=== PATIENT | female | born 1970 | race Caucasian/White ===

== ENCOUNTER 2019-07-15 13:50 | Outpatient (CLI) | payer MEDICARE, MEDICAID, SELFPAY ==
--- NOTE | 2019-07-15 14:05 | CT_ITS ---
WS: [id number] CT CHEST TECHNIQUE: Contrast enhanced CT of the chest with coronal and sagittal reformatted images. CLINICAL INFORMATION: COUGH,ASTHMATIC BRONCHITIS, TOBACCO ABUSE COMPARISON: None. DLP: 1095.[address] scans at [facility] use at least one of these dose optimization techniques: automat ed exposure control; mA and/or kV adjustment per patient size (includes targeted exams where dose is matched to clinical indication); or iterative reconstruction. FINDINGS: Mild chronic emphysematous changes. No acute pulmonary infiltrates. No suspicious pulmonary parenchym al opacities. Slight right basilar atelectasis. No mediastinal or hilar lymphadenopathy. Thyroid glan d is normal. Adrenal glands are normal. Diffuse fatty infiltration liver. Cholecystectomy clips. CT/CT chest w con* [id number] IMPRESSION: 1. Mild chronic emphysematous changes. 2. No acute pulmonary infiltrates. No suspicious pulmonary opacities. 3. No mediastinal or hilar lymphadenopathy. 4. Mild diffuse fatty infiltration of the liver. Cholecystectomy clips. 5. Small esophageal hiatal hernia.
[2019-07-15] MEDS: iohexol 300 mg/mL 100 mL Btl IV (14:54)
== END 2019-07-15 13:51 | disposition home or self-care (01) ==
PROVIDERS: Family Provider Nurse Practitioner Family; PCP Nurse Practitioner Family; Visit Provider Nurse Practitioner Family
DX: J43.9 Emphysema, unspecified (principal); J45.909 Unspecified asthma, uncomplicated; F17.210 Nicotine dependence, cigarettes, uncomplicated; K76.0 Fatty (change of) liver, not elsewhere classified; K44.9 Diaphragmatic hernia without obstruction or gangrene
CPT/HCPCS: 71260; Q9967

== ENCOUNTER 2020-02-17 11:19 | Outpatient (CLI) | payer MEDICARE, MEDICAID, SELFPAY ==
--- NOTE | 2020-02-17 11:29 | CT_ITS ---
WS: [id number] CT ABDOMEN PELVIS TECHNIQUE: Contrast-enhanced CT of the abdomen and pelvis with coronal and sagittal reformatted image s. CLINICAL INFORMATION: CONSTIPATION/ABD PAIN COMPARISON: CT 3 19,018 DLP: 1145.[address] scans at [facility] use at least one of these dose optimization techniques: automat ed exposure control; mA and/or kV adjustment per patient size (includes targeted exams where dose is matched to clinical indication); or iterative reconstruction. FINDINGS: Prior cholecystectomy. Prior hysterectomy. Mild diffuse fatty infiltration liver. Normal po rtal vein and splenic vein. Small esophageal hiatal hernia. Adrenal glands are normal. Normal renal p arenchymal enhancement. No hydronephrosis.Lung bases are well aerated. Normal sigmoid colon. No evidence of small or large bowel obstruction. No free fluid in the abdomen o r pelvis. Normal caliber abdominal aorta. No inguinal lymphadenopathy. Tiny fat-containing umbilical hernia. Mild disc osteophyte complex at L1-2. CT/CT abdomen pelvis w con* [id number] IMPRESSION: 1. Mild diffuse fatty infiltration of the liver. 2. Small esophageal hiatal hernia. 3. Cholecystectomy and hysterectomy. 4. Normal caliber abdominal aorta. 5. No evidence of small or large bowel obstruction. 6. No free fluid in the abdomen or pelvis.
[2020-02-17] MEDS: iohexol 300 mg/mL 50 mL Btl PO (12:48)
[2020-02-17] MEDS: iohexol 300 mg/mL 100 mL Btl IV (13:07)
== END 2020-02-17 11:20 | disposition home or self-care (01) ==
LOC: RADWPI 11:23
PROVIDERS: Family Provider Nurse Practitioner Family; PCP Nurse Practitioner Family; Visit Provider Nurse Practitioner Family
DX: K59.00 Constipation, unspecified (principal); R10.9 Unspecified abdominal pain; K76.0 Fatty (change of) liver, not elsewhere classified; K44.9 Diaphragmatic hernia without obstruction or gangrene
CPT/HCPCS: 74177; Q9967

== ENCOUNTER 2023-11-17 14:21 | Outpatient (CLI) | payer MEDICARE, MEDICAID, SELFPAY ==
--- NOTE | 2023-11-17 14:27 | MM_ITS ---
WS: [id number] BILATERAL 3D TOMOSYNTHESIS DIGITAL SCREENING MAMMOGRAPHY WITH CAD CLINICAL INFORMATION: SCREENING HISTORY: Screening mammogram. No current complaints. COMPARISON: 2018 TECHNIQUE: Bilateral CC and MLO views. FINDINGS: Scattered fibroglandular densities bilaterally. No suspicious focal mass, asymmetry, calcifications, or architectural distortion. No evidence of malignancy. A few incidental punctate calcifications. Sta ble incidental intramammary lymph node upper outer LEFT breast MM/[place] [id number] IMPRESSION: BI-RADS: 2-Benign FOLLOW UP: 1 Year Follow-up Recommend return to annual screening mammography.
== END 2023-11-17 14:22 | disposition home or self-care (01) ==
LOC: RAD 14:22
PROVIDERS: Family Provider Nurse Practitioner Family; PCP Nurse Practitioner Family; Visit Provider Nurse Practitioner Family
DX: Z12.31 Encounter for screening mammogram for malignant neoplasm of breast (principal); R92.323 Mammographic fibroglandular density, bilateral breasts
CPT/HCPCS: 77063; 77067

== ENCOUNTER → 2025-01-08 07:21 | Outpatient (BNVA) | payer MEDICARE, MEDICAID, SELFPAY | PROVIDERS: Family Provider Nurse Practitioner Family; PCP Nurse Practitioner Family; Visit Provider Podiatrist Foot & Ankle Surgery | DX: E11.40 Type 2 diabetes mellitus with diabetic neuropathy, unspecified (principal); B35.1 Tinea unguium; M72.2 Plantar fascial fibromatosis | CPT/HCPCS: 11721; 99204 ==

== ENCOUNTER 2025-01-15 07:58 | Outpatient (CLI) | payer OTHER, MEDICAID, SELFPAY ==
--- NOTE | 2025-01-15 08:08 | MM_ITS ---
WS: [id number] BILATERAL SCREENING DIGITAL TOMOSYNTHESIS MAMMOGRAM WITH CAD HISTORY: SCREENING COMPARISON: 11/17/2023, 07/06/2017 Bilateral CC and MLO views with tomosynthesis and synthetic mammography submitted. Computer aided detection analyzed. Breast composition: There are scattered areas of fibroglandular density. No suspicious masses, microcalcifications or architectural distortion. Benign intramammary lymph node LEFT breast. Benign calcification anterior RIGHT breast. MM/MM scr BI tomosynthesis [id number] IMPRESSION: BI-RADS: 2 - Benign. FOLLOW UP: 1 Year Follow-up
== END 2025-01-15 07:59 | disposition home or self-care (01) ==
PROVIDERS: PCP Nurse Practitioner Family; Visit Provider Nurse Practitioner Family
DX: Z12.31 Encounter for screening mammogram for malignant neoplasm of breast (principal); R92.323 Mammographic fibroglandular density, bilateral breasts; N63.20 Unspecified lump in the left breast, unspecified quadrant; R92.1 Mammographic calcification found on diagnostic imaging of breast
CPT/HCPCS: 77063; 77067

== ENCOUNTER → 2025-03-12 07:47 | Outpatient (BNVA) | payer OTHER, MEDICAID, SELFPAY | PROVIDERS: PCP Nurse Practitioner Family; Visit Provider Podiatrist Foot & Ankle Surgery | DX: M72.2 Plantar fascial fibromatosis (principal); E11.8 Type 2 diabetes mellitus with unspecified complications; B35.1 Tinea unguium; E11.40 Type 2 diabetes mellitus with diabetic neuropathy, unspecified; M24.572 Contracture, left ankle | CPT/HCPCS: 20550; 99213; J1100; J3301; J9999 ==

== ENCOUNTER 2025-04-02 09:42 | Outpatient (CLI) | payer OTHER, MEDICAID, SELFPAY | END 2025-04-02 09:43 | disposition home or self-care (01) | LOC: SPT 09:42 | PROVIDERS: PCP Nurse Practitioner Family; Visit Provider Podiatrist Foot & Ankle Surgery | DX: Z46.89 Encounter for fitting and adjustment of other specified devices (principal); M72.2 Plantar fascial fibromatosis | CPT/HCPCS: L4397 ==

== ENCOUNTER → 2025-04-16 07:26 | Outpatient (BNVA) | payer OTHER, MEDICAID, SELFPAY | PROVIDERS: PCP Nurse Practitioner Family; Visit Provider Podiatrist Foot & Ankle Surgery | DX: M84.375A Stress fracture, left foot, initial encounter for fracture (principal); M72.2 Plantar fascial fibromatosis; B35.1 Tinea unguium; E11.40 Type 2 diabetes mellitus with diabetic neuropathy, unspecified; M24.572 Contracture, left ankle | CPT/HCPCS: 99214 ==

== ENCOUNTER → 2025-04-30 08:52 | Outpatient (BNVA) | payer MEDICARE, MEDICAID, SELFPAY | PROVIDERS: PCP Nurse Practitioner Family; Visit Provider Podiatrist Foot & Ankle Surgery | DX: M72.2 Plantar fascial fibromatosis (principal); B35.1 Tinea unguium; E11.40 Type 2 diabetes mellitus with diabetic neuropathy, unspecified; M24.572 Contracture, left ankle | CPT/HCPCS: 73630; 99213 ==

== ENCOUNTER → 2025-05-27 09:18 | Outpatient (BNVA) | payer MEDICARE, MEDICAID, SELFPAY | PROVIDERS: PCP Nurse Practitioner Family; Visit Provider Podiatrist Foot & Ankle Surgery | DX: M72.2 Plantar fascial fibromatosis (principal); B35.1 Tinea unguium; E11.40 Type 2 diabetes mellitus with diabetic neuropathy, unspecified; M24.573 Contracture, unspecified ankle | CPT/HCPCS: 99213 ==

== ENCOUNTER 2025-06-13 13:19 | Outpatient (RCR) | payer OTHER, MEDICAID, SELFPAY | END 2025-06-18 23:59 | disposition home or self-care (01) | LOC: SPT 13:19 | PROVIDERS: PCP Nurse Practitioner Family; Visit Provider Podiatrist Foot & Ankle Surgery | DX: M72.2 Plantar fascial fibromatosis (principal) | CPT/HCPCS: 97161 ==